=== PATIENT | female | born 1990 | race Asian ===

== ENCOUNTER 2024-06-30 11:56 | Outpatient (CLI) | payer BC ==
[2024-06-30 14:01] LABS: BHCG - Serum Negative (NEGATIVE); Pregs Control Background? CLEAR/WHITE (CLR/WHITE); Pregs Control Bar Appear? YES (CONTROL BAR)
== END 2024-06-30 11:57 | disposition home or self-care (01) ==
LOC: CSHLAB 11:56
PROVIDERS: ATTEND Surgery
DX: Z01.812 Encounter for preprocedural laboratory examination (principal); K64.9 Unspecified hemorrhoids
CPT/HCPCS: 84703

== ENCOUNTER 2024-07-03 06:26 | Day surgery (SDC) | payer BC ==
[2024-06-30 12:17] VITALS: BMI 29.9
[2024-07-03] MEDS ORDERED: Midazolam HCl 2 mg/2 ml Vial ONE (07:23)
[2024-07-03] MEDS ORDERED: Lidocaine 2% PF 5 ML VIAL ONE (07:36)
[2024-07-03] MEDS ORDERED: PROPOFOL 20 ML ONE (07:36)
[2024-07-03] MEDS ORDERED: Lidocaine 2% 6 ML (Jelly) SYR ONE (07:36)
[2024-07-03] MEDS ORDERED: Bupivacaine HCl 0.5%/Epinephrine 1:200,000/PF 30 ml Vial ONE (07:36)
[2024-07-03] MEDS ORDERED: Fentanyl 100 MCG/2 ML VIAL ONE (07:41)
[2024-07-03] MEDS ORDERED: Dexamethasone 4 mg/ml Vial ONE (07:42)
[2024-07-03] MEDS ORDERED: Ondansetron PF 4 MG/2 ML Vial ONE (07:42)
[2024-07-03] MEDS ORDERED: CEFAZOLIN 2 GM VIAL ONE (07:50)
[2024-07-03] MEDS ORDERED: Ketorolac Tromethamine 30 MG (1 mL) VIAL ONE (08:34)
[2024-07-03] MEDS ORDERED: Meperidine HCl/PF 25 MG (1 mL) VIAL ONE (09:11)
[2024-07-03] MEDS ORDERED: HYDROcodone/Acetaminophen 5/325 mg Tablet ONE (09:48)
== END 2024-07-03 10:24 | disposition home or self-care (01) ==
LOC: CSHSDC 06:26
PROVIDERS: ATTEND Surgery
PROC: 06BY0ZC Excision of Hemorrhoidal Plexus, Open Approach (ICD-10-PCS; principal; 2024-07-03)
DX: K64.4 Residual hemorrhoidal skin tags (principal); Z88.0 Allergy status to penicillin; Z79.899 Other long term (current) drug therapy
CPT/HCPCS: 88304; J1100; J1885; J2175; J2250; J2405; J2704; J3010